=== PATIENT | male | born 2000 | race Hispanic/Latino ===

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

== ENCOUNTER 2023-08-20 12:45 | Inpatient (IN) | payer MEDICAID, OTHER ==
[2023-08-20] VITALS (30 sets, daily range): BP systolic 99–143; BP diastolic 52–83; PULSE 56–110; RESP 15–20
[~2023-08-20] VITALS: Ht 167.6 cm; Wt 91.6 kg
[2023-08-20] MEDS: LIDOCAINE 1%-EPI 1:100,000 20 ML VIAL IJ SCH (13:00)
[2023-08-20] MEDS ORDERED: ROCURONIUM BROMIDE 10MG/1ML 5ML VL ONE (13:40)
[2023-08-20] MEDS ORDERED: PROPOFOL 10 MG/ML 20ML VIAL IV ONE (13:40)
[2023-08-20] MEDS ORDERED: SUCCINYLCHOLINE CHLORIDE 20 MG/ML 10 ML VIAL ONE (13:40)
[2023-08-20] MEDS ORDERED: FENTANYL CITRATE PF 50 MCG/1 ML 2ML VIAL ONE (13:40)
[2023-08-20] MEDS: ONDANSETRON 4MG INJ IVP ONE (13:44)
[2023-08-20] MEDS: MORPHINE 2 MG SYG IVP ONE (13:45)
[2023-08-20] MEDS: MORPHINE 4 MG SYG IVP ONE (13:46)
[2023-08-20] MEDS: ONDANSETRON 4MG INJ ONE (13:47)
[2023-08-20] MEDS: MORPHINE 2 MG SYG ONE (13:47)
[2023-08-20] MEDS: MORPHINE 4 MG SYG ONE (13:47)
[2023-08-20 13:50] LABS: BASOPHILS # (AUTO) 0.01 K/uL (0.00-0.20); BASOPHILS % (AUTO) 0.1 % (0.0-5.0); EOSINOPHILS # (AUTO) 0.11 K/uL (0.00-0.70); EOSINOPHILS % (AUTO) 1.6 % (0.0-8.0); HEMATOCRIT 43.1 % (42-54); IMMATURE GRANULOCYTE ABSOLUTE 0.02 K/uL (0-1); LYMPHOCYTES # (AUTO) 2.3 K/uL (1.0-4.8); LYMPHOCYTES % (AUTO) 33.6 % (21.0-51.0); MEAN CORPUSCULAR HGB CONC 34.8 g/dL (32.0-36.0); MEAN CORPUSCULAR VOLUME 91.9 fL (79-99); MONOCYTES # (AUTO) 0.6 K/uL (0.1-1.0); MONOCYTES % (AUTO) 9.1 % (3.0-13.0); NEUTROPHILS # (AUTO) 3.8 K/uL (1.8-7.7); NEUTROPHILS % (AUTO) 55.3 % (40.0-77.0); PLATELET COUNT (AUTO) 236 K/uL (130-400); RED BLOOD CELL COUNT(AUTO) 4.69 MIL/uL (4.50-6.20); RED CELL DISTRIBUTION WIDTH 12.5 % (11.0-15.5); WHITE BLOOD COUNT (AUTO) 6.9 K/uL (4.8-10.8)
[2023-08-20 14:01] LABS: INR <= 0.93 (0.85-1.15); PROTHROMBIN TIME 10.8 SEC (9.6-11.6)
[2023-08-20 14:02] LABS: ALBUMIN 3.9 g/dL (3.5-5.0); BILIRUBIN,TOTAL 0.6 mg/dL (0.2-1.0); CREATININE 0.9 mg/dL (0.5-1.3); PARTIAL THROMBOPLASTIN TIME 25.1 SEC (26.3-35.5); POTASSIUM 3.6 mmol/L (3.5-5.1); TOTAL PROTEIN, SERUM 7.5 g/dL (6.0-8.3)
[2023-08-20] MEDS: LIDOCAINE 1%-EPI 1:100,000 20 ML VIAL ONE (14:04)
[2023-08-20] MEDS: TETANUS/DIPHTHERIA TOXOID [ADULT] 0.5 ML VIAL IM ONE (14:09)
[2023-08-20] MEDS: CEFAZOLIN SODIUM 1 GM VIAL ONE (14:30)
[2023-08-20] MEDS ORDERED: CEFAZOLIN SODIUM 1 GM VIAL ONE (14:39)
[2023-08-20] MEDS ORDERED: DEXAMETHASONE SOD PHOSPHATE 10MG/ML 1ML VIAL ONE (14:40)
[2023-08-20] MEDS ORDERED: ONDANSETRON 4MG INJ ONE (14:40)
[2023-08-20] MEDS ORDERED: MIDAZOLAM HCL 1 MG/ML 2ML VIAL ONE (14:49)
[2023-08-20] MEDS ORDERED: PHENYLEPHRINE HCL 10 MG/ML 1ML VIAL IV ONE (15:06)
[2023-08-20] MEDS ORDERED: GLYCOPYRROLATE 0.2 MG/ML 5 ML VIAL ONE (15:43)
[2023-08-20] MEDS ORDERED: NEOSTIGMINE METHYLSULFATE 1MG/ML IV ONE (15:44)
[2023-08-20] MEDS ORDERED: EPHEDRINE SULFATE 50 MG/ML AMPULE ONE (15:50)
[2023-08-20] MEDS ORDERED: ACETAMINOPHEN 325 MG TAB PO PRN (20:00)
[2023-08-20] MEDS ORDERED: ONDANSETRON 4MG INJ IVP PRN (20:00)
[2023-08-20] MEDS: CEFAZOLIN SODIUM 1 GM VIAL IVPB ONE (21:30)
[2023-08-20] MEDS: 0.9%NACL 1000ML 1,000 ML IV SCH (21:30)
[2023-08-21] VITALS (7 sets, daily range): BP systolic 120–144; BP diastolic 70–83; PULSE 71–101; RESP 18–20; O2SAT 99–100
[2023-08-21 05:55] LABS: HEMATOCRIT 32.1 % (42-54); IMMATURE GRANULOCYTE ABSOLUTE 0.08 K/uL (0-1); LYMPHOCYTES # (AUTO) 0.9 K/uL (1.0-4.8); LYMPHOCYTES % (AUTO) 7.2 % (21.0-51.0); MEAN CORPUSCULAR HEMOGLOBIN 32.2 pg (27.0-33.0); MEAN CORPUSCULAR HGB CONC 34.6 g/dL (32.0-36.0); MONOCYTES # (AUTO) 0.7 K/uL (0.1-1.0); MONOCYTES % (AUTO) 5.7 % (3.0-13.0); NEUTROPHILS # (AUTO) 11.3 K/uL (1.8-7.7); NEUTROPHILS % (AUTO) 86.5 % (40.0-77.0); PLATELET COUNT (AUTO) 242 K/uL (130-400); RED BLOOD CELL COUNT(AUTO) 3.45 MIL/uL (4.50-6.20); RED CELL DISTRIBUTION WIDTH 12.5 % (11.0-15.5); WHITE BLOOD COUNT (AUTO) 13.1 K/uL (4.8-10.8)
[2023-08-21 06:29] LABS: ALBUMIN 3.6 g/dL (3.5-5.0); BILIRUBIN,TOTAL 0.5 mg/dL (0.2-1.0); CREATININE 0.9 mg/dL (0.5-1.3); POTASSIUM 3.8 mmol/L (3.5-5.1); TOTAL PROTEIN, SERUM 6.8 g/dL (6.0-8.3)
[2023-08-21] MEDS: OXYCODONE/ACETAMIN 5/325MG TAB PO PRN (06:42)
[2023-08-21] MEDS: HYDROMORPHONE 1 MG INJ IVP PRN (08:52)
[2023-08-22] VITALS: BP 134/75; PULSE 95; RESP 19
[2023-08-22 04:00] VITALS: BP 122/86; PULSE 88; RESP 19
[2023-08-22 04:23] VITALS: O2SAT 100
[2023-08-22 05:53] LABS: CREATININE 0.8 mg/dL (0.5-1.3); POTASSIUM 3.1 mmol/L (3.5-5.1)
[2023-08-22 06:02] LABS: HEMATOCRIT 28.7 % (42-54); MEAN CORPUSCULAR HEMOGLOBIN 32.7 pg (27.0-33.0); MEAN CORPUSCULAR HGB CONC 35.5 g/dL (32.0-36.0); RED BLOOD CELL COUNT(AUTO) 3.12 MIL/uL (4.50-6.20); RED CELL DISTRIBUTION WIDTH 12.6 % (11.0-15.5); WHITE BLOOD COUNT (AUTO) 8.3 K/uL (4.8-10.8)
[2023-08-22 08:00] VITALS: BP 143/83; PULSE 82; RESP 18
[2023-08-22 08:55] VITALS: O2SAT 100
[2023-08-22 12:00] VITALS: BP 129/80; PULSE 81; RESP 18
[2023-08-22] MEDS: KCL 20 MEQ ERTAB PO ONE (14:30)
== END 2023-08-22 15:30 | disposition home or self-care (01) | DRG 581 ==
LOC: EDH 12:45 → 3DH 12:46
PROVIDERS: ADMIT Hospitalist; ATTEND Hospitalist
PROC: 03Q90ZZ Repair Right Ulnar Artery, Open Approach (ICD-10-PCS; principal; 2023-08-20 14:17)
DX: S51.811A Laceration without foreign body of right forearm, initial encounter (principal); D50.0 Iron deficiency anemia secondary to blood loss (chronic); E87.6 Hypokalemia; R58 Hemorrhage, not elsewhere classified; W18.39XA Other fall on same level, initial encounter; Y93.89 Activity, other specified; Y92.89 Other specified places as the place of occurrence of the external cause; Y99.8 Other external cause status; Z90.49 Acquired absence of other specified parts of digestive tract
CPT/HCPCS: 36415; 73090; 80048; 80053; 85025; 85027; 85610; 85730; 86850; 86900; 86901; 86923; 90714; G0378; J0330; J0690; J1100; J1170; J1644; J2250; J2270; J2371; J2405; J2704; J2710; J3010; J3490; J7030; J7120; A4649; A4930; A9272

== ENCOUNTER 2023-08-26 15:16 | Emergency (ER) | payer OTHER | END 2023-08-26 17:18 | disposition left against medical advice (07) | LOC: EDH 15:16 | DX: Z48.00 Encounter for change or removal of nonsurgical wound dressing (principal); Z53.21 Procedure and treatment not carried out due to patient leaving prior to being seen by health care provider ==

== ENCOUNTER 2024-05-25 21:35 | Emergency (ER) | payer SELFPAY ==
[~2024-05-25] VITALS: Ht 165.1 cm; Wt 87.1 kg
--- NOTE | 2024-05-26 00:39 | NUR ---
OD 20/40 OU 20/25 OS 20/40
[2024-05-26] MEDS ORDERED: NAPH15DR8 OP (00:53)
--- NOTE | 2024-05-26 00:53 | ERN ---
ED Note History of Present Illness Stated Complaint: C/O REDNESS TO EYES X 3 DAYS Chief Complaint: Eye Problems Time Seen by MD: 21:38 Time Seen by Midlevel: 21:38 Dictation: The patient is a 24-year-old male with no significant medical history who pre sents to the emergency department with complaints of bilateral eye redness, burning sensation. Patient denies any drainage. Denies any trauma or foreign body. Patient reports occasional nasal congestion. Denies any visual deficits. Allergies: Coded Allergies: No Known Drug Allergies (Verified Allergy, Unknown, 11/10/13) Home Meds Active Scripts Naphazoline HCl/Pheniramine (Opcon-A Eye Drops) 0.51404 %-0.315 % Drops, 1 DROP OP QID for 10 Days, #15 ML 0 Refills Prov:MABEL CALABRESE BLOOD TESTER FOWL 05/26/24 Past Medical History Past Medical History: No Pertinent History Surgical History: None RN Note Reviewed/Agreed w/PFSH: Yes Review of System Dictation Constitutional: Negative for fever,chills, and weight loss Eyes: Negative for injury, pain, and discharge positive for redness, increased lacrimation ENT: Negative for injury,pain or swelling Cardiovascular: Negative for chest pain, palpitations, and edema Respiratory: Negative for shortness of breath, cough, and wheezing, Abdomen/GI: Negative for abdominal pain, nausea, vomiting, diarrhea, and constipation Back: Negative for injury and pain : Negative for injury, bleeding and discharge MS/Extremity: Negative for injury and deformity Skin: Negative for rash, and discoloration Neuro: Negative for headache, weakness, numbness, tingling, and seizure Psych: Negative for suicide ideation, homicidal ideation, and hallucinations Initial Vital Sign VS Vital Signs Date Time Temp Pulse Resp B/P (MAP) Pulse Ox O2 Delivery O2 Flow Rate FiO2 05/25/24 21:37 97.3 92 20 134/97 99 Room Air 05/26/24 01:19 0 21 Physical Exam Dictation Vital Signs reviewed General Appearance: Alert, oriented x 3, no acute distress, well developed, nourished. Head and Face: non-traumatic. Eyes: PERRL, pink conjunctivas, eyelid no trauma, anterior chamber with arcus senilis. Ears: Pinnas intact and no signs of trauma or erythema ear canals clear and no discharge TM no erythema Nose: No discharge, no bleeding. Oropharynx: Mouth normal, tongue pink. pharynx clear,no erythema, tonsils no exudates, no abscesses noted, mucous membrane moist Neck: Supple, non-tender, no thyromegaly, no masses, no JVD, no bruits Breast:Deferred Chest:No tenderness, no crepitus, no paradoxical movement, no retractions Lungs:Clear, well-ventilated, symmetric, no rales, no wheezing, no rhonchi, no stridor, good breath sounds bilaterally Heart: Regular rate, regular rhythm, no murmur, no gallops Vascular: no peripheral edema, Abdomen: Soft, positive bowel sounds, nondistended, no guarding, nontender, no rebound, no masses no hepatomegaly, no splenomegaly, no Jenkins's sign, no hernias. Rectal: Deferred Genital: Deferred Neurological: Normal speech, motor function intact, sensory function intact Musculoskeletal: Neck nontender, full range of motion, back nontender, full range of motion, Extremities: nontender, full range of motion Skin: Color pink, dry, no turgor, no rash, no lacerations, no abrasions, no contusions. Lymphatic: Deferred Results (Laboratory/Radiology) Laboratory/Radiology Laboratory Tests Test 05/26/24 00:30 Influenza Type A Antigen Negative For Type A Influenza Type B Antigen Negative For Type B SARS-CoV-2 Antigen (Rapid) PRESUMPTIVE NEGATIVE Labs Reviewed?: Yes ED Course ED Course Orders Procedure Category Date Status Time Visual Acuity Test CPOE 05/25/24 Transmitted (Er) 21:59 Influenza Type A & B, LAB 05/25/24 Complete Rapid 21:59 Covid19 (Sars Antigen LAB 05/25/24 Complete Rapid) 21:59 Vital Signs Date Time Temp Pulse Resp B/P (MAP) Pulse Ox O2 Delivery O2 Flow Rate FiO2 05/26/24 01:19 97.5 78 18 140/68 98 Room Air* 0 21 05/25/24 21:37 97.3 92 20 134/97 99 Room Air Medical Decision Making MDM The patient is a 24-year-old male with no significant medical history who presents to the emergency department with complaints of bilateral eye redness, burning sensation. Patient denies any drainage. Denies any trauma or foreign body. Patient reports occasional nasal congestion. Denies any visual deficits. Patient in no acute distress, no visual deficits. Will be treated for viral conjunctivitis and instructed to follow up with PCP. Differential diagnosis: Bacterial conjunctivitis, viral conjunctivitis, upper respiratory infection Need for hospitalization: Patient does not meet criteria for hospitalization. There are no social concerns with this patient. DX & DISP Disposition: Discharge Departure Impression: Primary Impression: Viral conjunctivitis of both eyes Condition: Stable Scripts Naphazoline HCl/Pheniramine (Opcon-A Eye Drops) 0.96616 %-0.315 % Drops 1 DROP OP QID for 10 Days, #15 ML 0 Refills Prov: MABEL CALABRESE 05/26/24 Additional Instructions: Please follow up with your PCP in 1-2 days. [facility] [address] [place] [phone] FOLLOW-UP WITH PRIMARY CARE PROVIDER IN 1 TO 2 DAYS. TAKE MEDICATIONS DIRECTED HERE IN THE EMERGENCY ROOM. OKAY TO CONTINUE HOME MEDICATIONS UNLESS OTHERWISE DISCUSSED DURING YOUR VISIT IN THE EMERGENCY ROOM TODAY. RETURN TO YOUR NEAREST EMERGENCY ROOM IF SYMPTOMS WORSEN OR IF THERE IS NO IMPROVEMENT. CALL 911 IF YOU NEED IMMEDIATE ASSISTANCE. TAKE TYLENOL OR MOTRIN [id number] NEEDED AND IF NO CONTRAINDICATIONS ARE PRESENT. INCREASE ORAL HYDRATION. A WOUND CULTURE OR URINE CULTURE WAS ORDERED HERE IN THE EMERGENCY ROOM DEPARTMENT PLEASE FOLLOW-UP WITH PRIMARY CARE PROVIDER AND ADVISE THEM TO GET REPEAT PORTS FROM OUR FACILITY. IF YOU HAD ANY CARLOS WRAP/SPLINTS THAT WERE APPLIED HERE, PLEASE DO NOT REMOVE THEM UNTIL YOU SEE YOUR PRIMARY CARE OR SPECIALTY. Referrals: DAISHA CARLISLE MD (PCP) Time of Disposition: 00:50 I have reviewed the case, and I agree with, Diagnosis and Plan MABEL CALABRESE May 26, 2024 00:53
[2024-05-26 00:55] LABS: COVID19 (SARS ANTIGEN RAPID) PRESUMPTIVE NEGATIVE (NEGATIVE); INFLUENZA TYPE A Negative For Type A (NEGATIVE); INFLUENZA TYPE B Negative For Type B (NEGATIVE)
[2024-05-26 01:19] VITALS: BP 140/68; PULSE 78; RESP 18; TEMP 97.5; O2SAT 98
== END 2024-05-26 01:18 | disposition home or self-care (01) ==
LOC: EDH 21:35
DX: B30.9 Viral conjunctivitis, unspecified (principal); Z20.822 Contact with and (suspected) exposure to COVID-19
CPT/HCPCS: 87426; 87804; 99283